=== PATIENT | male | born 1985 ===

== ENCOUNTER 2024-08-28 03:58 | Emergency (ER) | payer OTHER ==
[~2024-08-28] VITALS: Ht 167.6 cm; Wt 82.0 kg
[2024-08-28] MEDS ORDERED: DIPHTH,PERTUSS(ACELL),TET VAC 0.5 ML SYRINGE IM ONE (04:15)
[2024-08-28 04:45] VITALS: BP 132/92
== END 2024-08-28 04:50 | disposition home or self-care (01) ==
LOC: ED 03:58
DX: S01.111A Laceration without foreign body of right eyelid and periocular area, initial encounter (principal); W06.XXXA Fall from bed, initial encounter
CPT/HCPCS: 12013; 90471; 90715; 99283-25